=== PATIENT | female | born 1960 | race Caucasian/White ===

== ENCOUNTER → 2016-06-03 | Outpatient (CLI) | payer BC ==
[~2016-06-03] MED LIST: AZIT250T PO; HYDR-757 PO; MELO-195 PO; MOBIC; RANI75TA30 PO; TRIA1TAB3 PO; TRM50T PO; [UNRECOGNIZED DRUG - REMARK]
--- NOTE | 2016-06-06 13:45 | Diagnostic Imaging Report ---
Bilateral screening mammogram. The current study was also evaluated with a Computer Aided Detection (CAD) system. INDICATION: Screening. No current complaints stated on the questionnaire. COMPARISON: 03/25/15. FINDINGS: The breasts are composed of scattered fibroglandular densities. There are bilateral benign-appearing calcifications. Allowing for technique and positional differences, no suspicious change is seen. IMPRESSION: No significant change. ACR BI-RADS Category 2: Benign findings. Result letter will be mailed to the patient. Note: At least 10% of breast cancer is not imaged by mammography. Dictated by: Dictated on workstation # [id number]
== END ==
LOC: RAD 14:03
PROVIDERS: ATTEND Family Medicine
DX: Z12.31 Encounter for screening mammogram for malignant neoplasm of breast (principal)
CPT/HCPCS: 77067

== ENCOUNTER 2019-02-20 05:45 | Outpatient (CLI) | payer BC ==
[~2019-02-20] VITALS: Ht 165.1 cm; Wt 111.4 kg
[2019-02-20] MEDS ORDERED: METF-397 PO (09:21)
[2019-02-20] MEDS ORDERED: TOLT1TAB13 PO (09:21)
[2019-02-20] MEDS ORDERED: TRIA1TAB3 PO (09:21)
[2019-02-20] MEDS ORDERED: LISI-556 PO (09:21)
== END 2019-02-20 09:31 | disposition home or self-care (01) ==
LOC: PREOP 05:45
PROVIDERS: ATTEND Surgery
DX: Z01.818 Encounter for other preprocedural examination (principal)

== ENCOUNTER 2019-02-27 09:00 | Day surgery (SDC) | payer BC ==
--- NOTE | 2019-02-22 08:28 | HISTORY AND PHYSICAL ---
DATE OF SERVICE: PROCEDURE DATE: 02/27/2019. ATTENDING PRIMARY CARE PHYSICIAN: Dr. Josseline Schofield. HISTORY OF PRESENT ILLNESS: The patient is a 58-year-old female, who was referred over to us in need of a screening colonoscopy. The patient reports her last colonoscopy was around 10 years ago, which she reports she did have some diverticulosis identified. She reports since that time, she has not had any blood in her stool and denies any family history of any colon cancer. She denies any diarrhea, constipation or any abdominal pain. PAST MEDICAL HISTORY: Diverticulosis, endometriosis, hypertension and type 2 diabetes. PAST SURGICAL HISTORY: Laparoscopic tubal ligation in 1999, left rotator cuff repair in 2004 and again in 2005, laparoscopic removal of fibroid tumors in 2006, complete hysterectomy and appendectomy in 2007. Laparoscopic removal of lesion and colonoscopy in 2008 and bilateral breast reduction in 2010. ALLERGIES: NEOSPORIN. MEDICATIONS: Lisinopril 5 mg daily, triamterene/hydrochlorothiazide 37.5/25 mg half tablet daily, metformin 500 mg b.i.d., ____ 1 mg daily, magnesium 250 mg daily, potassium 99 mg daily, melatonin at bedtime, acyclovir 400 mg p.r.n. and cinnamon b.i.d. SOCIAL HISTORY: Negative for smoke. Negative for alcohol. FAMILY HISTORY: Mother, diabetes. Father with prostate cancer and hypertension. Sister, diabetes. Brother, diabetes, DVT and hypertension. Maternal grandmother, diabetes. Paternal grandfather, stroke and myocardial infarction. REVIEW OF SYSTEMS: A well-nourished female, in no acute distress. She is not experiencing any shortness of breath or difficulty breathing. No chest pain, palpitations or diaphoresis. No nausea, vomiting or abdominal pain. No diarrhea or constipation. No red blood per rectum. No dark tarry stools. No fever or chills. No recent inadvertent weight loss. All other review of systems negative. PHYSICAL EXAMINATION: VITAL SIGNS: Blood pressure is 134/80. Current weight 245.4 pounds at 5 feet and 5 inches. CHEST: Clear. Good breath sounds bilaterally. HEART: Regular, no murmurs. EXTREMITIES: No lower extremity edema. Negative Homans sign. HEENT: No scleral icterus. NECK: No cervical lymphadenopathy. ABDOMEN: Soft, nontender and nondistended. SKIN: Warm, dry and pink. NEUROLOGIC: Awake, alert and oriented x3. ASSESSMENT AND PLAN: A 58-year-old female, who is in need of a screening colonoscopy. The risks and benefits of the procedure as well as the procedure and home care instructions were explained to the patient. The patient verbalized understanding of the instructions and agrees to this plan. At this time, we will proceed with scheduling the patient for a screening colonoscopy. Job ID: [id number] DocumentID: [id number] Dictated Date: 02/18/2019 13:33:25 Car Tracer Date: 02/18/2019 13:57:43 Dictated By: CHARLY KRAMER APRN
[~2019-02-27] VITALS: Ht 165.1 cm; Wt 111.4 kg
[2019-02-27] VITALS (20 sets, daily range): BP systolic 104–165; BP diastolic 64–100
[~2019-02-27 09:00] MED LIST changes: +LISI-556 PO; +METF-397 PO; +TOLT1TAB13 PO
[2019-02-27] MEDS ORDERED: NS IV 500 ML 500 ML IV PRN (09:09)
[2019-02-27] MEDS ORDERED: LACTATED RINGERS 0 ML IV ONE (09:12)
[2019-02-27] MEDS ORDERED: fentaNYL INJECTION 100 MCG/2 ML AMP IVP ONE (09:15)
[2019-02-27] MEDS ORDERED: LIDOCAINE JELLY 2% 6 ML SYRINGE MM PRN (09:15)
[2019-02-27] MEDS ORDERED: NS IV 500 ML 500 ML ONE (09:18)
[2019-02-27] MEDS ORDERED: LIDOCAINE JELLY 2% 6 ML SYRINGE ONE (09:32)
[2019-02-27] MEDS ORDERED: fentaNYL INJECTION 100 MCG/2 ML AMP ONE ×2 (09:32)
[2019-02-27] MEDS ORDERED: MIDAZOLAM 5 MG/5 ML (VERSED) VIAL ONE ×2 (09:32→09:33)
--- NOTE | 2019-02-27 09:33 | Conscious Sedation/ASA ---
Conscious Sedation Pre-Proced Time 09:30 ASA Score 2 For ASA 3 and 4: Consider anesthesia and medical clearance. Also, for patients with a history of failed moderate sedation consider anesthesia. Airway Lungs Heart ASA score ASA 1: a normal healthy patient ASA 2: a patient with a mild systemic disease (mid diabetes, controlled hypertension, obesity ASA 3: a patient with a severe systemic disease that limits activity (angina, COPD, prior Myocardial infarction) ASA 4: a patient with an incapacitating disease that is a constant threat to life (CHF, renal failure) ASA 5: a moribund patient not expected to survive 24 hrs. (ruptured aneurysm) ASA 6: a declared brain- patient whose organs are being harvested. For emergent operations, add the letter E after the classification Mallampati Classification Grade 2 Sedation Plan Analgesia, Amnesia, Plan communicated to team members, Discussed options with patient/fam, Discussed risks with patient/fam The patient is an appropriate candidate to undergo the planned procedure, sedation, and anesthesia. The patient immediately re-assessed prior to indication. RODRÍGUEZ BURGESS MD Feb 27, 2019 09:33
--- NOTE | 2019-02-27 09:34 | Progress Note-Pre Operative ---
Pre-Operative Progress Note H&P Reviewed The H&P was reviewed, patient examined and no changes noted. Date Seen by Provider: Feb 27, 2019 Time Seen by Provider: : Date H&P Reviewed: Feb 27, 2019 Time H&P Reviewed: :30 Pre-Operative Diagnosis: screening colonoscopy RODRÍGUEZ BURGESS MD Feb 27, 2019 09:34
--- NOTE | 2019-02-27 09:35 | Discharge Inst-Surgical ---
D/C Lap Instructions-JENIFER Follow Up Activity as tolerated High Fiber Diet 25g or more per day Avoid Alcohol, Caffeine, Spicy [place] and Acid foods. Drink 64 fluid oz or more of fluids per day. Symptoms to Report: Fever over 101 degree F, Nausea/Vomiting If any problems/questions: Contact your physician or go to Emergency Room RODRÍGUEZ BURGESS MD Feb 27, 2019 09:35
[2019-02-27] MEDS ORDERED: ONDANSETRON 4 MG/2 ML (SDV) Z0FRAN IVP PRN (09:45)
[2019-02-27] MEDS ORDERED: HYDROcodone/APAP 5 MG/325 MG (LORTAB) TAB PO PRN (09:45)
[2019-02-27] MEDS ORDERED: ACETAMINOPHEN 325 MG TABLET PO PRN (09:45)
[2019-02-27] MEDS: MIDAZOLAM 5 MG/5 ML (VERSED) VIAL IV PRN ×4 (09:45→10:00)
[2019-02-27] MEDS ORDERED: morphine INJ 10 MG/ML 1ML (SYR OR VIAL) IVP PRN ×2 (09:45)
--- NOTE | 2019-02-27 10:41 | Progress Note-Post Operative ---
Post-Operative Progess Note Surgeon (s)/[place] Consultant (s) Surgeon RODRÍGUEZ BURGESS MD [place] Consultant: none Pre-Operative Diagnosis screening colonoscopy Post-Operative Diagnosis moderate sigmoid diverticulosis. Procedure & Operative Findings Date of Procedure 02/27/19 Procedure Performed/Findings colonoscopy Anesthesia Type cs Estimated Blood Loss Estimated blood loss (mL): minimal Specimens/Packing Specimens Removed none RODRÍGUEZ BURGESS MD Feb 27, 2019 10:41
--- NOTE | 2019-02-27 16:04 | OPERATIVE REPORT ---
DATE OF SERVICE: 02/27/2019 ATTENDING PRIMARY CARE PHYSICIAN: Dr. Josseline Schofield. PREOPERATIVE DIAGNOSIS: Screening colonoscopy. POSTOPERATIVE DIAGNOSIS: Moderate sigmoid diverticulosis. PROCEDURE: Colonoscopy. SURGEON: Rodríguez Burgess MD. ANESTHESIA: Conscious sedation. ESTIMATED BLOOD LOSS: Minimal. FINDINGS: No significant hemorrhoids identified. There was a moderate sigmoid diverticulosis. No mucosal inflammatory changes to indicate any active diverticulitis. No polyps identified. DISPOSITION: The patient tolerated the procedure well. INDICATIONS: The patient is a 58-year-old female referred over to us for screening colonoscopy. Her last colonoscopy was approximately 10 years ago and she remembers diverticulosis. She does have some issues with constipation; however, has tried to incorporate more fiber and water in her diet. She does not report any red blood per rectum nor any dark tarry stools and does not report any family history of colon cancer. DESCRIPTION OF PROCEDURE: The patient was brought to the endoscopy suite, laid in the left lateral decubitus position. After adequate IV pain and sedative medications and conscious sedation anesthesia, digital rectal examination was performed. Mild chronic stage I hemorrhoids were identified, which were not actively edematous nor inflamed and no bleeding. Normal sphincter tone was felt and there were no palpable masses. The endoscope was then intubated into the anus and rectum gently insufflated. The endoscope was then advanced through the valves of [place] of the rectum with no polyps or any neoplasms identified. Through the sigmoid colon, a moderate sigmoid diverticulosis identified. There were no mucosal inflammatory changes to indicate any active diverticulitis. The endoscope was then advanced to the remainder of the descending, transverse and ascending colon to the cecum. These segments were normal. There were no polyps or any neoplasms identified throughout the colon or rectum. Endoscope was then slowly withdrawn while taking a second look and suctioning of residual air with no additional findings. The patient tolerated the procedure well. We will recommend high fiber diet with 25 to 30 grams of fiber daily as well as significant amounts of water to promote soft stools on a daily basis. If she is asymptomatic, she does not need another colonoscopy for another 10 years. Job ID: [id number] DocumentID: [id number] Dictated Date: 02/27/2019 10:33:32 Entertainment Centre Manager Date: 02/27/2019 16:03:14 Dictated By: RODRÍGUEZ BURGESS MD
== END 2019-02-27 11:35 | disposition home or self-care (01) ==
LOC: ENDO 09:00
PROVIDERS: ATTEND Surgery
DX: Z12.11 Encounter for screening for malignant neoplasm of colon (principal); K57.30 Diverticulosis of large intestine without perforation or abscess without bleeding; E11.9 Type 2 diabetes mellitus without complications; I10 Essential (primary) hypertension; Z98.51 Tubal ligation status; Z90.710 Acquired absence of both cervix and uterus; Z90.89 Acquired absence of other organs; Z90.13 Acquired absence of bilateral breasts and nipples; Z79.84 Long term (current) use of oral hypoglycemic drugs; Z79.899 Other long term (current) drug therapy; Z83.3 Family history of diabetes mellitus; Z82.49 Family history of ischemic heart disease and other diseases of the circulatory system; Z82.3 Family history of stroke; Z80.42 Family history of malignant neoplasm of prostate

== ENCOUNTER → 2021-12-31 | Outpatient (CLI) | payer BC, OTHER ==
[~2021-12-31] MED LIST changes: -LISI-556 PO; +LISI5TAB20 PO
== END ==
LOC: RAD 10:00
DX: Z12.31 Encounter for screening mammogram for malignant neoplasm of breast (principal); Z00.00 Encounter for general adult medical examination without abnormal findings
CPT/HCPCS: 77063; 77067